=== PATIENT | female | born 2000 | race Two or more races ===

== ENCOUNTER 2020-02-21 21:30 | Emergency (ER) | payer OTHER ==
--- NOTE | 2020-02-21 21:52 | ER Document Report ---
ED Medical Screen (RME) - General Chief Complaint: Urinary Problem Stated Complaint: VAGINAL DISCHARGE, URINARY INCONTINENCE, BACK PAIN Time Seen by Provider: 02/21/20 21:41 Mode of Arrival: Ambulatory Information source: Patient Notes: 19-year-old female presented to ED for complaint of pain to both breast that are very sore causing her her chest pain. She states she did get both nipples p ierced about 2 weeks ago and she does not know if this is what is causing this pain. She is also having frequent urgent urination. She states today on the way to the bathroom she passed out due to the discomfort and urgency to the urination. States she also is not having vaginal bleeding and not blood when she urinates but sometimes after she urinates she does see little blood clots in the toilet. She states there is no blood when she wipes there is no vaginal bleeding she just sees the blood clots in the urine. Damon Owens NP did come into the room and took over the patient so I did not finish the evaluation. - Related Data Allergies/Adverse Reactions: No Known Allergies Allergy (Unverified 02/21/20 21:44) Physical Exam - Vital signs Vitals: Temp Pulse Resp BP Pulse Ox 98.9 F 91 14 124/69 100 02/21/20 21:43 02/21/20 21:43 02/21/20 21:43 02/21/20 21:43 02/21/20 21:43 Course - Vital Signs Vital signs: Temp Pulse Resp BP Pulse Ox 98.9 F 91 14 124/69 100 02/21/20 21:43 02/21/20 21:43 02/21/20 21:43 02/21/20 21:43 02/21/20 21:43
[2020-02-21] MEDS ORDERED: NORMAL SALINE 1000 ML 1,000 ML IV ONE (21:56)
[2020-02-21] MEDS ORDERED: ACETAMINOPHEN 325 MG TABLET PO ONE (21:57)
--- NOTE | 2020-02-21 21:59 | ER Document Report ---
ED General - General Chief Complaint: Urinary Problem Stated Complaint: VAGINAL DISCHARGE, URINARY INCONTINENCE, BACK PAIN Time Seen by Provider: 02/21/20 21:41 Primary Care Provider: [facility] [Provider Group] - Follow up as needed ROBERTO DUGAN MD [ACTIVE STAFF] - Follow up tomorrow Mode of Arrival: Ambulatory Information source: Patient Notes: Patient reports having her nipples pierced 2 weeks ago and having breast tenderness since then. Patient reports urinary frequency and dysuria. Patient states that she had hematuria yesterday. Patient denies any fever nausea or vomiting. Patient states that this evening she did have a syncopal episode but was only out briefly. Patient denies any cough cold symptoms or shortness of breath. - HPI Onset: This evening Onset/Duration: Sudden Quality of pain: Achy Pain Level: 3 Associated symptoms: Chest pain. 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 denies: Fever, Recent illness EENT: No symptoms reported Cardiovascular: Chest pain - Bilateral breast, Syncope Respiratory: No symptoms reported. denies: Cough, Short of breath Gastrointestinal: No symptoms reported. denies: Abdominal pain, Nausea, Vomiting Genitourinary: Dysuria, Frequency, Hematuria Female Genitourinary: Vaginal discharge. denies: , Vaginal bleeding Musculoskeletal: No symptoms reported. denies: Back pain Skin: No symptoms reported Hematologic/Lymphatic: No symptoms reported Neurological/Psychological: No symptoms reported. denies: Weakness, Headaches Physical Exam - Vital signs Vitals: Temp Pulse Resp BP Pulse Ox 98.9 F 91 14 124/69 100 02/21/20 21:43 02/21/20 21:43 02/21/20 21:43 02/21/20 21:43 02/21/20 21:43 - General General appearance: Appears well, Alert In distress: None - HEENT Head: Normocephalic, Atraumatic Eyes: Normal Conjunctiva: Normal Nasal: Normal Mouth/Lips: Normal Pharynx: Normal Neck: Normal, Supple. No: Lymphadenopathy - Respiratory Respiratory status: No respiratory distress Chest status: Tender Breath sounds: Normal. No: Rales, Rhonchi, Stridor, Wheezing Chest palpation: Normal Notes: Patient with bilateral breast tenderness around her nipple piercings, no erythema, no drainage from the nipple, normal skin color. Patient with tender lump to right breast - Cardiovascular Rhythm: Regular. No: Tachycardia Heart sounds: S1 appreciated, S2 appreciated Murmur: No - Abdominal Inspection: Normal Tenderness: Nontender Organomegaly: No organomegaly - Genitourinary External exam: Normal Speculum exam: Cervix closed Vaginal bleeding: None Bimanuel exam: Normal. No: Cervical motion tender, Adnexal tenderness - Back Back: Tender - Lower lumbar paraspinal tenderness. No: CVA tenderness, Vertebra tenderness - Extremities General upper extremity: Normal inspection, Normal ROM General lower extremity: Normal inspection, Normal ROM - Neurological Neuro grossly intact: Yes Cognition: Normal Aparna Coma Scale Eye Opening: Spontaneous Aparna Coma Scale Verbal: Oriented Aparna Coma Scale Motor: Obeys Commands Carroll Coma Scale Total: 15 - Psychological Associated symptoms: Normal affect, Normal mood - Skin Skin Temperature: Warm Skin Moisture: Dry Skin Color: Normal Course - Re-evaluation Re-evalutation: 02/22/20 00:33 Patient reports feeling much better, patient does have UTI with leukocytosis, no flank tenderness, no fever, no concern for sepsis at this time. Will culture urine at this time. Patient does report syncopal episode. EKG does show sinus arrhythmia. Patient encouraged to follow-up with a oxyacetylene burner for a recheck. Patient without any chest pain or shortness of breath. No elevation of d-dimer at this time. Patient without tachycardia or hypoxia. Patient with incidental lump noted to the right breast, no overlying erythema, no concern for abscess. Patient encouraged to see her primary doctor for outpatient mammogram. The patient has atypical chest pain as the patient's chest pain is not suggestive of pulmonary embolus, cardiac ischemia, aortic dissection, or other serious etiology. Given the extremely low risk of these diagnoses, evaluation for these possibilities does not appear to be indicated at this time. Patient has been instructed to return if the symptoms worsen or change in any way. - Vital Signs Vital signs: Temp Pulse Resp BP Pulse Ox 98.9 F 91 14 124/69 100 02/21/20 21:49 02/21/20 21:43 02/21/20 21:43 02/21/20 21:43 02/21/20 21:43 - Laboratory Result Diagrams: 02/21/20 22:23 02/21/20 22:23 Laboratory results interpreted by me: 02/21/20 02/21/20 22:23 22:23 WBC 16.2 H RDW 14.2 H Absolute Neuts (auto) 11.2 H Urine Protein 100 H Urine Blood LARGE H Urine Urobilinogen 2.0 H Ur Leukocyte Esterase LARGE H Labs- All tests 24 hr 02/21/20 02/21/20 02/21/20 22:23 22:23 22:23 WBC 16.2 H RBC 4.80 Hgb 14.7 Hct 43.0 MCV 90 MCH 30.7 MCHC 34.3 RDW 14.2 H Plt Count 267 Lymph % (Auto) 21.2 [place] % (Auto) 8.7 Eos % (Auto) 0.7 Baso % (Auto) 0.3 Absolute Neuts (auto) 11.2 H Absolute Lymphs (auto) 3.4 Absolute Monos (auto) 1.4 Absolute Eos (auto) 0.1 Absolute Basos (auto) 0.0 Seg Neutrophils % 69.1 D-Dimer Sodium 139.0 Potassium 4.1 Chloride 104 Carbon Dioxide 26 Anion Gap 9 BUN 15 Creatinine 0.73 Est GFR ( Amer) > 60 Est GFR (MDRD) Non-Af > 60 Glucose 91 Calcium 9.9 Total Bilirubin 0.4 Direct Bilirubin 0.0 Neonat Total Bilirubin Not Reportable Neonat Direct Bilirubin Not Reportable Neonat Indirect Bili Not Reportable AST 14 ALT 20 Alkaline Phosphatase 86 Total Protein 7.7 Albumin 4.7 Serum HCG, Qual NEGATIVE Urine Color Urine Appearance Urine pH Ur Specific [place] Urine Protein Urine Glucose (UA) Urine Ketones Urine Blood Urine Nitrite Urine Bilirubin Urine Urobilinogen Ur Leukocyte Esterase Urine WBC (Auto) Urine RBC (Auto) Squamous Epi Cells Auto Urine Mucus (Auto) Urine Ascorbic Acid Epi Cells (Wet Prep) Trichomonas (Wet Prep) Vaginal WBC Vaginal RBC Vaginal Yeast 02/21/20 02/21/20 02/22/20 22:23 22:23 00:23 WBC RBC Hgb Hct MCV MCH MCHC RDW Plt Count Lymph % (Auto) [place] % (Auto) Eos % (Auto) Baso % (Auto) Absolute Neuts (auto) Absolute Lymphs (auto) Absolute Monos (auto) Absolute Eos (auto) Absolute Basos (auto) Seg Neutrophils % D-Dimer 0.37 Sodium Potassium Chloride Carbon Dioxide Anion Gap BUN Creatinine Est GFR ( Amer) Est GFR (MDRD) Non-Af Glucose Calcium Total Bilirubin Direct Bilirubin Neonat Total Bilirubin Neonat Direct Bilirubin Neonat Indirect Bili AST ALT Alkaline Phosphatase Total Protein Albumin Serum HCG, Qual Urine Color YELLOW Urine Appearance CLOUDY Urine pH 8.0 Ur Specific [place] 1.021 Urine Protein 100 H Urine Glucose (UA) NEGATIVE Urine Ketones NEGATIVE Urine Blood LARGE H Urine Nitrite NEGATIVE Urine Bilirubin NEGATIVE Urine Urobilinogen 2.0 H Ur Leukocyte Esterase LARGE H Urine WBC (Auto) >182 Urine RBC (Auto) >182 Squamous Epi Cells Auto 1 Urine Mucus (Auto) RARE Urine Ascorbic Acid NEGATIVE Epi Cells (Wet Prep) 3+ EPITHELIALS SEEN Trichomonas (Wet Prep) NO TRICHOMONAS SEEN Vaginal WBC RARE WBCS SEEN Vaginal RBC NO RBCS SEEN Vaginal Yeast NO YEAST SEEN - Diagnostic Test Radiology reviewed: Reports reviewed - EKG Interpretation by Me EKG shows normal: Sinus rhythm Rhythm: Arrthymia When compared to previous EKG there are: Previous EKG unavailable Additional EKG results interpreted by me: 02/22/20 00:33 No acute ischemic changes, QTC 392 Discharge - Discharge Clinical Impression: Breast lump in female UTI (urinary tract infection) Qualifiers: Urinary tract infection type: site unspecified Hematuria presence: with hematuria Qualified Code(s): N39.0 - Urinary tract infection, site not specified Syncope Qualifiers: Syncope type: unspecified Qualified Code(s): R55 - Syncope and collapse Condition: Stable Disposition: HOME, SELF-CARE Instructions: Breast Lumps ([facility]), Cephalexin ([facility]), Syncopal Episode ([facility]), Urinary Anesthetic Agent ([facility]), Urinary Tract Infection ([facility]) Additional Instructions: Return immediately for any new or worsening symptoms Followup with your primary care provider, call tomorrow to make a followup appointment Wound culture is pending, we will call if you need any different treatment Your primary doctor can recheck the breast lump and order a mammogram for you for further evaluation. Follow-up with a oxyacetylene burner for further evaluation of chest discomfort and for follow-up of your EKG performed here today. Prescriptions: Cephalexin Monohydrate [Keflex 500 mg Capsule] 500 mg PO Q6H 7 Days #28 capsule Naproxen [Naprosyn 250 Nmg Tablet] 1 tab PO BID #14 tablet Phenazopyridine HCl [Pyridium 200 mg Tablet] 200 mg PO TID #15 tablet Forms: Return to Work Referrals: [facility] [Provider Group] - Follow up as needed ROBERTO DUGAN MD [ACTIVE STAFF] - Follow up tomorrow
[2020-02-21 22:39] LABS: ABSOLUTE EOSINOPHILS # (AUTO) 0.1 10^3/uL (0.0-0.6); ABSOLUTE LYMPHOCYTES (AUTO) 3.4 10^3/uL (0.5-4.7); ABSOLUTE MONOCYTES (AUTO) 1.4 10^3/uL (0.1-1.4); ABSOLUTE NEUT (AUTO) 11.2 10^3/uL (1.7-8.2); BASOPHILS % (AUTO) 0.3 % (0-2); EOSINOPHILS % (AUTO) 0.7 % (0-6); HEMOGLOBIN 14.7 g/dL (12.0-15.5); LYMPHOCYTES % (AUTO) 21.2 % (13-45); MEAN CORPUSCULAR HEMOGLOBIN 30.7 pg (27.0-33.4); MEAN CORPUSCULAR HGB CONC 34.3 g/dL (32.0-36.0); MEAN CORPUSCULAR VOLUME 90 fl (80-97); MONOCYTES % (AUTO) 8.7 % (3-13); PLATELET COUNT 267 10^3/uL (150-450); RED CELL DISTRIBUTION WIDTH 14.2 % (11.5-14.0); SEGMENTED NEUTROPHILS % (AUTO) 69.1 % (42-78); TOTAL CELLS COUNTED % (AUTO) 100 %; WHITE BLOOD COUNT 16.2 10^3/uL (4.0-10.5)
--- NOTE | 2020-02-21 22:42 | RADIOLOGY REPORT (SQ) ---
Chest 2 view on 02/21/2020 at 10:03 PM CLINICAL INDICATION: Chest pain COMPARISON: None FINDINGS: The lungs are clear. Cardiac, hilar and mediastinal contours are within normal limits. Pulmonary vascularity is within normal limits. No bony abnormality is noted. IMPRESSION: No active disease.
[2020-02-21 23:10] LABS: ALBUMIN 4.7 g/dL (3.5-5.0); ALKALINE PHOSPHATASE 86 U/L (38-126); ANION GAP 9 (5-19); ASPARTATE AMINO TRANSFERASE 14 U/L (14-36); BILIRUBIN,TOTAL 0.4 mg/dL (0.2-1.3); BLOOD UREA NITROGEN 15 mg/dL (7-20); CALCIUM 9.9 mg/dL (8.4-10.2); CARBON DIOXIDE 26 mmol/L (22-30); CHLORIDE 104 mmol/L (98-107); GLUCOSE 91 mg/dL (75-110); POTASSIUM 4.1 mmol/L (3.6-5.0); TOTAL PROTEIN 7.7 g/dL (6.3-8.2)
[2020-02-21 23:14] LABS: APPEARANCE,URINE CLOUDY; BILIRUBIN,URINE NEGATIVE (NEGATIVE); COLOR,URINE YELLOW; GLUCOSE, URINE NEGATIVE (NEGATIVE); KETONES,URINE NEGATIVE (NEGATIVE); LEUKOCYTE ESTERASE,URINE LARGE (NEGATIVE); NITRITE,URINE NEGATIVE (NEGATIVE); PROTEIN,URINE 100 mg/dL (NEGATIVE); URINE SPECIFIC GRAVITY 1.021
[2020-02-21] MEDS ORDERED: CEFTRIAXONE 1 GM/D5W RTU 1 GM/50 ML RTUPB IV ONE (23:39)
[2020-02-22] MEDS ORDERED: AZITHROMYCIN 250 MG TABLET PO ONE (00:28)
[2020-02-22 00:34] LABS: T.VAGINALIS (WET MOUNT) NO TRICHOMONAS SEEN; YEAST (WET MOUNT) NO YEAST SEEN
[2020-02-22 00:35] LABS: EPITHELIALS (WET MOUNT) 3+ EPITHELIALS SEEN; RBCS (WET MOUNT) NO RBCS SEEN; WBCS (WET MOUNT) RARE WBCS SEEN
[2020-02-22] MEDS ORDERED: FAMOTIDINE INJ/PF 20 MG/2 ML SDV IV ONE (01:25)
[2020-02-22] MEDS ORDERED: DIPHENHYDRAMINE HCL 50 MG/ML VIAL IV ONE (01:25)
[2020-02-22 02:50] LABS: CHLAM PCR NOT DETECTED (NOT DETECT)
[2020-02-22 02:58] VITALS: BP 106/79
--- NOTE | 2020-02-22 09:31 | EKG REPORT ---
SEVERITY:- OTHERWISE NORMAL ECG - SINUS ARRHYTHMIA, RATE [id number] : Confirmed by: Taylor Garcia MD 22-Feb-2020 09:30:07
== END 2020-02-22 02:55 | disposition home or self-care (01) ==
LOC: ER 21:30
DX: N39.0 Urinary tract infection, site not specified (principal); R31.9 Hematuria, unspecified; I49.9 Cardiac arrhythmia, unspecified; R55 Syncope and collapse; N63.0 Unspecified lump in unspecified breast; R09.89 Other specified symptoms and signs involving the circulatory and respiratory systems; N64.4 Mastodynia; N89.8 Other specified noninflammatory disorders of vagina; R07.89 Other chest pain
CPT/HCPCS: 93005; 99284; 96361; 96374; 36415; 87086; 87210; 84703; 85025; 87088; 80053; 81001; 85379; 87491; 87591; 71046; 93010; J1200; J7030; S0028; J0696; 87186